=== PATIENT | male | born 1950 | race Caucasian/White ===

== ENCOUNTER 2020-12-23 17:46 | Emergency (ER) | payer MEDICARE, BC ==
[2020-12-23] MEDS ORDERED: Metoprolol Tartrate 5 MG/5 ML SDV IVPUSH ONE ×4 (18:37→23:06)
[2020-12-23] MEDS ORDERED: HYDROmorphone 1 MG/ML Syringe IVPUSH ONE ×2 (18:38→20:25)
[2020-12-23] MEDS ORDERED: Metoclopramide 10 MG/2 ML SDV IVPUSH ONE ×2 (18:38→23:30)
--- NOTE | 2020-12-23 18:42 | EDM.PDOC ---
ED HPI GENERAL MEDICAL PROBLEM - General Chief Complaint: Cardiovascular Problem Stated Complaint: ABDOMINAL PAIN Time Seen by Provider: 12/23/20 18:36 Source of Information: Reports: Patient History Limitations: Reports: No Limitations - History of Present Illness INITIAL COMMENTS - FREE TEXT/NARRATIVE: 70-year-old male presents to the ED with onset of severe periumbilical left upper quadrant abdominal pain. He states this started on his trip back from [facility] towards [facility] where he resides. He states that approximately 200 miles from [place] that he started develop abdominal pain with a strong crampy component. He did stop in [place] and had a small bowel movement without blood. It provided no relief. From [place] which is 170 miles from [place] he developed increased abdominal pain to the point that he could no longer drive. He presents to the ED pallid and nauseated with pain which she rates 8-9 out of 10 left periumbilical and upper quadrant of the abdomen. Patient also presents in atrial fibrillation with rapid ventricular response. Patient has a history of chronic atrial fibrillation but admits he has not taken his metoprolol for the last day and a half as he ran out of medication and state a bit longer kian any plan. He is thus dyspneic. Heart rate is in the 140s on the monitor. Atrial fibrillation. O2 sats 92 to 94% room air. Patient has a known large umbilical hernia or para umbilical hernia which surgeons do not feel comfortable operating on him due to high risk I on Coumadin and Plavix. Patient has surgical mesh in both lower quadrants from previous inguinal hernia repairs. He has a nonproductive cough. Afebrile. Onset: Today, Gradual Onset Date: 12/23/20 Onset Time: 14:45 Duration: Hour(s):, Constant, Getting Worse, Waxing/Waning Location: Reports: Abdomen (Strong colicky component to the pain.) Quality: Reports: Ache, Sharp (There is a very strong colicky component to his pain.), Stabbing Severity: Severe (He rates the pain as 9 out of 10.) Improves with: Reports: None, Other (Position is currently comfortable. It is worse with trying to stand fully erect. Worse with coughing or deep breathing.) Worsens with: Reports: Movement (Pain is aggravated by trying to stand erect and is unable to do so. He appreciates that pain was worse if he coughed or took a deep breath.) Context: Reports: Other (Patient is known to have a large periumbilical hernia which has not been amenable to elective hernia repair due to the patient's multiple comorbidities and the fact that he is on Coumadin and Plavix. He is morbidly obese as well. Complicated by mesh grafts both inguinal areas from previous hernia ). Denies: Activity, Exercise, Lifting, Sick Contact, Trauma Associated Symptoms: Reports: Loss of Appetite, Malaise, Nausea/Vomiting, Shortness of Breath, Weakness (Nausea without vomiting). 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 (see below) (None.) - Related Data Allergies Allergy/AdvReac Type Severity Reaction Status Date / Time No Known Allergies Allergy Verified 12/23/20 18:04 Home Meds: Home Meds Citalopram Hydrobromide [Celexa] 40 mg PO DAILY 12/23/20 [History] Cyclobenzaprine [Flexeril] 10 mg PO TID PRN 12/23/20 [History] Insulin Aspart [NovoLOG] 20 unit SQ TID 12/23/20 [History] Insulin Glargine,Hum.Rec.Anlog [Basaglar Kwikpen U-100] 80 unit SQ DAILY 12/23/20 [History] Metoprolol Tartrate 50 mg PO BID 12/23/20 [History] Warfarin Sodium 4 mg PO DAILY 12/23/20 [History] allopurinoL [Zyloprim] 200 mg PO DAILY 12/23/20 [History] atorvaSTATin [Lipitor] 10 mg PO DAILY 12/23/20 [History] metFORMIN HCl [Metformin HCl] 1,000 mg PO BID 12/23/20 [History] Past Medical History HEENT History: Reports: Impaired Vision Cardiovascular History: Reports: Afib (Chronic A. fib. He is chronic anticoagulated with Coumadin.), Arrhythmia, Hypertension, SOB on Exertion, Stents Respiratory History: Reports: Sleep Apnea Other Respiratory History: wears CPAP at night Gastrointestinal History: Reports: Bowel Obstruction Musculoskeletal History: Reports: Gout Other Musculoskeletal History: 4 broken ribs on right side Endocrine/Metabolic History: Reports: Diabetes, Type II (He estimates he has been diabetic for about 10 years. He is currently controlled with both long- acting and short acting insulin daily. He takes his Lantus in the morning. He is also on Metformin 1000 mg twice daily.), Obesity/BMI 30+ - Past Surgical History Other Cardiovascular Surgeries/Procedures: stents placed in 2013 GI Surgical History: Reports: Colonoscopy, Hernia, Abdominal (Chronic abdominal hernia.), Other (See Below) (Bilateral inguinal hernia repair with mesh graft placement.) Social & Family History - Tobacco Use Tobacco Use Status *Q: Former Tobacco User Used Tobacco, but Quit: Yes Month/Year Tobacco Last Used: 05/1991 - Caffeine Use Caffeine Use: Reports: None - Alcohol Use Alcohol Use History: Yes Days Per Week of Alcohol Use: 7 - Recreational Drug Use Recreational Drug Use: No - Living Situation & Occupation Living situation: Reports: Occupation: Unemployed ED ROS GENERAL - Review of Systems Review Of Systems: See Below Constitutional: Reports: Malaise, Fatigue, Decreased Appetite (Today.). Denies: Fever, Chills, Weight Loss HEENT: Reports: Glasses Respiratory: Reports: Shortness of Breath (Unproductive), Cough. Denies: Wheezing, Pleuritic Chest Pain, Sputum Cardiovascular: Reports: Blood Pressure Problem, Dyspnea on Exertion, Edema, Lightheadedness (Due to the amount of pain that he is in at present.), Ort hopnea. Denies: Chest Pain, Claudication (Chronic hypertension) Endocrine: Reports: Fatigue, High Glucose (Type II diabetic), Polyuria GI/Abdominal: Reports: Abdominal Pain (History of present illness), Decreased Appetite, Nausea (Associated with abdominal pain). Denies: Constipation, Difficulty Swallowing (Day only.), Hematochezia, Vomiting, Other : Reports: Frequency, Urgency Musculoskeletal: Reports: Neck Pain ( compression fracture lumbar spine with kyphoplasty. Chronic low back pain), Shoulder Pain ( chronic cervical neck pain intermittent shoulder pain), Back Pain (Previous), Joint Pain (Knees and hips.) Skin: Reports: Bruising (Costal margin inferiorly. Patient reports that he fell in his garage and landed on a object and suffered for fractured ribs recently. He was discharged from hospital December 11. He was in hospital apparently 4 days.) Neurological: Reports: Dizziness, Difficulty Walking (Chronically), Weakness. Denies: Confusion, Headache, Numbness (Occasional.), Paresthesia, Syncope, Tingling, Tremors, Trouble Speaking Psychiatric: Reports: No Symptoms Hematologic/Lymphatic: Reports: No Symptoms Immunologic: Reports: No Symptoms ED EXAM, GENERAL - Physical Exam Exam: See Below Exam Limited By: No Limitations General Appearance: Alert, Moderate Distress (Moderate to severe distress. He is very pallid in color. Speaks in 3-5 word sentences.), Other (Temperature is 36.1 degrees. Heart rate was 141-152 atrial fibrillation on the monitor. Respiratory was 18-20 with O2 sats of 94% on room air. BP 167 129 initially suspect elevation from pain response) Eye Exam: Bilateral Eye: Normal Inspection, PERRL Throat/Mouth: Normal Inspection, Normal Lips, Normal Teeth, Normal Oropharynx Head: Atraumatic, Normocephalic Neck: Normal Inspection, Supple, Non-Tender, Limited Range of Motion (Mildly reduced lateral flexion and 10 degrees loss of extension.). No: Lymphadenopathy (L), Lymphadenopathy (R) Respiratory/Chest: No Accessory Muscle Use, Respiratory Distress, Decreased Breath Sounds (Tachypnea. Breath sounds diminished to both lung bases), Rales (Coarse rales bilaterally. Lung bases). No: No Respiratory Distress, Lungs Clear, Normal Breath Sounds Cardiovascular: No Gallop, No Murmur, No Rub, Irregularly Irregular (He is in atrial fibrillation chronically his heart rate is currently in the 140s. It reveals atrial fibrillation on the monitor.). No: Normal Peripheral Pulses, No Edema Peripheral Pulses: 1+: Posterior Tibial (L), Posterior Tibial (R), Dorsalis Pedis (L), Dorsalis Pedis (R), 2+: Carotid (L), Carotid (R) GI/Abdominal: Distended (Diffuse mild tympany to percussion upper abdomen but not inferior to the umbilicus.), Abnormal Bowel Sounds (Hyperactive bowel sounds throughout all 4 quadrants.), Other (Morbidly obese. Abdominal girth limits ability to palpate solid organs. Patient has a very large abdominal wall hernia from the 1:00 to 3 o'clock position if looking at him from the toes.) Back Exam: Other (Patient reports chronic back pain. Previous lumbar 1 compression fracture with kyphoplasty) Extremities: Other (Patient has edema both ankles and feet and lower tib-fib's. Does have bilateral venous stasis dermatitis.) Neurological: Alert, Oriented, CN II-XII Intact, Normal Cognition Psychiatric: Anxious, Other (And is in exquisite amount of pain at the time of exam) Skin Exam: Warm, Dry, Ecchymosis (MOC's right costal margin right upper quadrant of the abdomen from recent fall with fractured ribs right side x4.), Pallor, Other. No: Normal Color #1 Interpretation EKG Date: 12/23/20 Time: 18:05 Rhythm: A-Fib (With rates at 75-160 beats a minute) Rate (Beats/Min): 144 [place]: Normal P-Wave: Variable QRS: Other (Q waves present in V1 and V2 consider old anteroseptal microinfarction.) ST-T: Depressed (Mild ST segment depression V3-to V6 consider ischemia versus repolarization abnormality. There is decreased voltage limb and precordial leads.) QT: Normal EKG Interpretation Comments: Abnormal ECG Course - Vital Signs Last Recorded V/S: Last Vital Signs Temp 36.1 C 12/23/20 17:53 Pulse 128 H 12/23/20 23:18 Resp 18 12/23/20 17:53 BP 124/95 H 12/23/20 23:18 Pulse Ox 94 L 12/23/20 17:53 - Orders/Labs/Meds Orders: Active Orders 24 hr Category Date Time Status Abdomen Pelvis wo Cont [CT] Stat Exams 12/23/20 18:39 Taken Chest 1V Frontal [CR] Stat Exams 12/23/20 18:43 Taken Sodium Chloride 0.9% [Normal Saline] 1,000 ml Med 12/23/20 18:45 Active IV ASDIRECTED Medication Orders Sodium Chloride (Normal Saline) 1,000 mls @ 125 mls/hr IV ASDIRECTED TERRIE Last Admin: 12/23/20 18:50 Dose: 125 mls/hr Documented by: NISA Labs: Laboratory Tests 12/23/20 12/23/20 12/23/20 Range/Units 18:10 18:50 18:50 WBC 13.20 H (4.23-9.07) K/mm3 RBC 5.14 (4.63-6.08) M/mm3 Hgb 16.0 (13.7-17.5) gm/dl Hct 49.3 (40.1-51.0) % MCV 95.9 H (79.0-92.2) fl MCH 31.1 (25.7-32.2) pg MCHC 32.5 (32.2-35.5) g/dl RDW Std Deviation 48.5 H (35.1-43.9) fL Plt Count 303 (163-337) K/mm3 MPV 9.5 (9.4-12.3) fl Neut % (Auto) 74.3 H (34.0-67.9) % Lymph % (Auto) 17.0 L (21.8-53.1) % [place] % (Auto) 6.6 (5.3-12.2) % Eos % (Auto) 1.4 (0.8-7.0) Baso % (Auto) 0.4 (0.1-1.2) % Neut # (Auto) 9.81 H (1.78-5.38) K/mm3 Lymph # (Auto) 2.24 (1.32-3.57) K/mm3 [place] # (Auto) 0.87 H (0.30-0.82) K/mm3 Eos # (Auto) 0.19 (0.04-0.54) K/mm3 Baso # (Auto) 0.05 (0.01-0.08) K/mm3 Manual Slide Review Abnormal smear PT 16.1 H (9.7-12.0) SECONDS INR 1.52 APTT 27.3 (21.7-31.4) SECONDS Sodium (136-145) mEq/L Potassium (3.5-5.1) mEq/L Chloride (98-107) mEq/L Carbon Dioxide (21-32) mEq/L Anion Gap (5-15) BUN (7-18) mg/dL Creatinine (0.7-1.3) mg/dL Est Cr Clr Drug Dosing mL/min Estimated GFR (MDRD) (>60) mL/min BUN/Creatinine Ratio (14-18) Glucose (70-99) mg/dL POC Glucose 194 H (70-99) mg/dL Lactic Acid (0.4-2.0) mmol/L Calcium (8.5-10.1) mg/dL Magnesium (1.8-2.4) mg/dL Total Bilirubin (0.2-1.0) mg/dL AST (15-37) U/L ALT (16-63) U/L Alkaline Phosphatase (46-116) U/L Troponin I (0.00-0.056) ng/mL C-Reactive Protein (<1.0) mg/dL NT-Pro-B Natriuret Pep (0-125) pg/mL Total Protein (6.4-8.2) g/dl Albumin (3.4-5.0) g/dl Globulin gm/dL Albumin/Globulin Ratio (1-2) SARS-CoV-2 RNA (SKYLA) (NEGATIVE) 12/23/20 12/23/20 12/23/20 Range/Units 18:50 18:50 18:50 WBC (4.23-9.07) K/mm3 RBC (4.63-6.08) M/mm3 Hgb (13.7-17.5) gm/dl Hct (40.1-51.0) % MCV (79.0-92.2) fl MCH (25.7-32.2) pg MCHC (32.2-35.5) g/dl RDW Std Deviation (35.1-43.9) fL Plt Count (163-337) K/mm3 MPV (9.4-12.3) fl Neut % (Auto) (34.0-67.9) % Lymph % (Auto) (21.8-53.1) % [place] % (Auto) (5.3-12.2) % Eos % (Auto) (0.8-7.0) Baso % (Auto) (0.1-1.2) % Neut # (Auto) (1.78-5.38) K/mm3 Lymph # (Auto) (1.32-3.57) K/mm3 [place] # (Auto) (0.30-0.82) K/mm3 Eos # (Auto) (0.04-0.54) K/mm3 Baso # (Auto) (0.01-0.08) K/mm3 Manual Slide Review PT (9.7-12.0) SECONDS INR APTT (21.7-31.4) SECONDS Sodium 139 (136-145) mEq/L Potassium 4.2 (3.5-5.1) mEq/L Chloride 101 (98-107) mEq/L Carbon Dioxide 26 (21-32) mEq/L Anion Gap 16.2 H (5-15) BUN 20 H (7-18) mg/dL Creatinine 1.2 (0.7-1.3) mg/dL Est Cr Clr Drug Dosing 55.08 mL/min Estimated GFR (MDRD) > 60 (>60) mL/min BUN/Creatinine Ratio 16.7 (14-18) Glucose 205 H (70-99) mg/dL POC Glucose (70-99) mg/dL Lactic Acid (0.4-2.0) mmol/L Calcium 9.0 (8.5-10.1) mg/dL Magnesium 1.6 L (1.8-2.4) mg/dL Total Bilirubin 0.6 (0.2-1.0) mg/dL AST 25 (15-37) U/L ALT 39 (16-63) U/L Alkaline Phosphatase 132 H (46-116) U/L Troponin I < 0.017 (0.00-0.056) ng/mL C-Reactive Protein <0.2 (<1.0) mg/dL NT-Pro-B Natriuret Pep 956 H (0-125) pg/mL Total Protein 8.2 (6.4-8.2) g/dl Albumin 4.0 (3.4-5.0) g/dl Globulin 4.2 gm/dL Albumin/Globulin Ratio 1.0 (1-2) SARS-CoV-2 RNA (SKYLA) Negative (NEGATIVE) 12/23/20 Range/Units 19:00 WBC (4.23-9.07) K/mm3 RBC (4.63-6.08) M/mm3 Hgb (13.7-17.5) gm/dl Hct (40.1-51.0) % MCV (79.0-92.2) fl MCH (25.7-32.2) pg MCHC (32.2-35.5) g/dl RDW Std Deviation (35.1-43.9) fL Plt Count (163-337) K/mm3 MPV (9.4-12.3) fl Neut % (Auto) (34.0-67.9) % Lymph % (Auto) (21.8-53.1) % [place] % (Auto) (5.3-12.2) % Eos % (Auto) (0.8-7.0) Baso % (Auto) (0.1-1.2) % Neut # (Auto) (1.78-5.38) K/mm3 Lymph # (Auto) (1.32-3.57) K/mm3 [place] # (Auto) (0.30-0.82) K/mm3 Eos # (Auto) (0.04-0.54) K/mm3 Baso # (Auto) (0.01-0.08) K/mm3 Manual Slide Review PT (9.7-12.0) SECONDS INR APTT (21.7-31.4) SECONDS Sodium (136-145) mEq/L Potassium (3.5-5.1) mEq/L Chloride (98-107) mEq/L Carbon Dioxide (21-32) mEq/L Anion Gap (5-15) BUN (7-18) mg/dL Creatinine (0.7-1.3) mg/dL Est Cr Clr Drug Dosing mL/min Estimated GFR (MDRD) (>60) mL/min BUN/Creatinine Ratio (14-18) Glucose (70-99) mg/dL POC Glucose (70-99) mg/dL Lactic Acid 1.6 (0.4-2.0) mmol/L Calcium (8.5-10.1) mg/dL Magnesium (1.8-2.4) mg/dL Total Bilirubin (0.2-1.0) mg/dL AST (15-37) U/L ALT (16-63) U/L Alkaline Phosphatase (46-116) U/L Troponin I (0.00-0.056) ng/mL C-Reactive Protein (<1.0) mg/dL NT-Pro-B Natriuret Pep (0-125) pg/mL Total Protein (6.4-8.2) g/dl Albumin (3.4-5.0) g/dl Globulin gm/dL Albumin/Globulin Ratio (1-2) SARS-CoV-2 RNA (SKYLA) (NEGATIVE) Meds: Medications Generic Name Dose Route Start Last Admin Trade Name Freq PRN Reason Stop Dose Admin Sodium Chloride 1,000 mls @ 125 mls/hr 12/23/20 18:45 12/23/20 18:50 Normal Saline IV 125 mls/hr ASDIRECTED TERRIE Administration Discontinued Medications Generic Name Dose Route Start Last Admin Trade Name Aidanq PRN Reason Stop Dose Admin Furosemide 40 mg 12/23/20 22:05 12/23/20 22:37 Furosemide 40 Mg/4 Ml Vial IVPUSH 12/23/20 22:06 40 mg NOW ONE Administration Hydromorphone HCl 1 mg 12/23/20 18:38 12/23/20 18:51 Hydromorphone 1 Mg/Ml Syringe IVPUSH 12/23/20 18:39 1 mg ONETIME ONE Administration Hydromorphone HCl 1 mg 12/23/20 20:25 12/23/20 20:45 Hydromorphone 1 Mg/Ml Syringe IVPUSH 12/23/20 20:26 1 mg ONETIME ONE Administration Metoclopramide HCl 10 mg 12/23/20 18:38 12/23/20 18:50 Metoclopramide 10 Mg/2 Ml Sdv IVPUSH 12/23/20 18:39 10 mg ONETIME ONE Administration Metoprolol Tartrate 5 mg 12/23/20 18:37 12/23/20 18:53 Metoprolol Tartrate 5 Mg/5 Ml Sdv IVPUSH 12/23/20 18:38 5 mg ONETIME ONE Administration Metoprolol Tartrate 5 mg 12/23/20 21:10 12/23/20 21:17 Metoprolol Tartrate 5 Mg/5 Ml Sdv IVPUSH 12/23/20 21:11 5 mg ONETIME ONE Administration Metoprolol Tartrate 5 mg 12/23/20 22:09 12/23/20 22:15 Metoprolol Tartrate 5 Mg/5 Ml Sdv IVPUSH 12/23/20 22:10 5 mg ONETIME ONE Administration Metoprolol Tartrate 5 mg 12/23/20 23:06 12/23/20 23:18 Metoprolol Tartrate 5 Mg/5 Ml Sdv IVPUSH 12/23/20 23:07 5 mg ONETIME ONE Administration - Radiology Interpretation Free Text/Narrative:: 70-year-old male presents to the ED with severe abdominal pain. Associated nausea. He reports that he is driving back to [place] from [facility] where he has been visiting for the last 10 days. Patient states that approximate 200 miles west of [facility] [place], [place] he started to develop crampy periumbilical abdominal pain. This progressively worsened. He stopped in [place] and did have a small bowel movement with no blood. He reports this did not give him any relief of the abdominal pain. Pain intensified to the point that he could no longer drive his vehicle and he came into the emergency room at our hospital. Patient presents with dyspnea and atrial fibrillation with rapid ventricular response at 146/min. He is dyspneic and hypoxic with O2 sats of 89 to 90%. He was placed on oxygen at 2 L/min by nasal cannula. Evaluation revealed a huge left-sided contents measuring 26 cm x 16 cm. There is bowel sounds in the overlying hernia. There also appears to be a hernia slightly to the right of the midline which is approximately 10 to 12 cm in length and 9 cm wide. He thus has 2 significant problems. Appears to have incarcerated periumbilical abdominal wall hernia and atrial fibrillation with rapid ventricular response. - Re-Assessments/Exams Free Text/Narrative Re-Assessment/Exam: 12/23/20 20:29 CT of the abdomen without contrast has been completed. Granulomatous calcification is appreciated the right lung base. Patchy scarring or atelectasis in the lung bases bilaterally. Heart size is normal with moderate coronary artery calcification appreciated. Mediastinal space reveals the visualized distal esophagus to be normal. Liver shows small liver with slightly lobular contour and a few areas suspicious for underlying cirrhosis. No mass lesions. No intrahepatic biliary ductal dilatation. Granulomatous calcifications in the liver appreciated. Gallbladder and bile ducts reveal no abnormalities. No calcified gallstones. No ductal dilatation. Pancreas shows mild pancreatic atrophy without acute abnormality. No pancreatic ductal dilatation. Spleen is normal with no splenomegaly. Adrenal lungs 3 mm left adrenal calcification appreciated. Probably granulomatous. Adrenal glands otherwise unremarkable. Kidneys and ureters show moderate bilateral symmetrical perinephric stranding which is nonspecific and age-indeterminate. This may relate to perirenal scarring or edema. Clinical and laboratory correlation is recommended to exclude evidence of medical renal disease. No hydronephrosis or hydroureter evident. No urinary tract stones identified. The stomach is largely contracted without gross abnormality. The small bowel is nondilated with no gross abnormality. Mild colonic diverticulosis without evidence of diverticulitis is present. The transverse colon herniates through the anterior abdominal wall in the periumbilical region in (2 places)-- just to the right and left of the midline just above the hernia repair mesh. There is no bowel dilatation proximal to the hernias to suggest associated bowel obstruction. No significant wall thickening or stranding was seen to suggest bowel strangulation. The appendix is normal in caliber and demonstrates no evidence of appendicitis. Intraperitoneal space was no free air or fluid. Vasculature reveals moderate atherosclerotic aorto iliac calcification without aneurysm. Lymph nodes are normal. Urinary bladder appears unremarkable. Reproductive tract appears unremarkable. Bones and joints reveal osteopenia. Chronic fractures of the right lateral sixth, seventh and ninth ribs evident. Chronic moderate superior endplate compression deformity of lumbar 1 vertebra with prior vertebroplasty and about 4 mm of retropulsion is evident. There is associated moderate central canal stenosis at this level. Moderate multilevel disc degenerative changes in the lumbar spine. Soft tissues reveal evidence of prior periumbilical hernia repair. In addition to the abdominal wall hernias containing bowel in the supraumbilical region, there is a small fatty midline supraumbilical hernia present with no associated bowel herniation or signs of strangulation. There is also another small fatty hernia at the right inferior lateral margin of the mesh. Pain is much improved after receiving IV Dilaudid 1mg. He rates his pain down to a 3 compared to a 9 when he came into the ED. His color is also much better. He still has a very large periumbilical hernia from the 1:00 to 3 o'clock position looking at his feet upwards. This is greaterin length than the size of the palm of my hand and wider. 12/23/20 20:36 White count is elevated at 13.20. Neutrophil count is 74.3% on the auto differential. Hemoglobin was 16.0 with hematocrit of 49.3 suggesting some degree of hemoconcentration. MCV mildly elevated at 95.9. Platelet count 303,000. The smear reveals moderate toxic granulation pattern with less than 5% banded neutrophils seen. Platelets are adequate and normal. PT is 16.1 with an INR which is subtherapeutic at 1.52. PTT is 27.3. Sodium 139 with a potassium of 4.2. Chloride 101 with a bicarb of 26. Anion gap is 16.2. BUN is 20 creatinine is 1.2. GFR is greater than 60. Glucose was 205 bedside glucose was 194. Lactic acid is 1.6. Calcium is 9.0 with a magnesium slightly low at 1.6. Liver function normal other than slightly elevated alkaline phosphatase at 132. Troponin I is less than 0.017. C-reactive protein less than 0.2. BNP is 956. If further pain medication and manipulation to try and reduce his hernia fails he is going to need urgent surgery due to a large amount of the transverse colon in the hernia. It may well be too incarcerated to reduce although there is not that much stranding around the the herniated contents and fat in the abdominal wall at this time. On discussion he would prefer to be transferred to [facility] in [place] if we are able and need to send him to a hospital in [place] this is where he would prefer to go. He was appraised of the high surgical risk and he has been turned down by 2 other general surgeons at [facility] in the past. Of course this was an elective hernia repair. He does not believe that he is ever had incarceration of the hernia although by the size of the defect in his abdominal wall there is likely bowel and omentum slipping in and out of these hernia defects for many years. This is the first time it ever hurt this bad. 12/23/20 21:47 I spent a half an hour in the patient's room and I believe I was able to reduce the right sided umbilical hernia. I had no success however with the left-sided umbilical hernia. Patient will have to be transferred to [place] where he is from for likely surgical management. CT of the abdomen and pelvis sent by PACS with his chest x-ray to [place]. His heart rate remains around 1 14-1 20. He will therefore receive a third dose of metoprolol 5 mg p.o. I have withheld oral medication due to suspected need for surgery. 12/23/20 22:00 My PA is currently on the phone with [facility] call and the refore I have delayed my call to her. Patient will have a repeat glucose check. He will be given Lasix 40 mg IV as well. 12/23/20 23:07 rate is gradually got back up in atrial fibrillation between 120 and 140/min. We will repeat metoprolol 5 mg IV. Contemplating using a esmolol drip but pharmacy would have to come in and mix it up which would take the better part of an hour. At present I have no accepting physician in [facility] to transfer this patient at this time. Awaiting callback through the 1 call service at [facility]. 12/23/20 23:34 patient has been up to void x2 at the bedside. At present his abdominal pain is rated as a 1 out of 10. Atrial fibrillation rate did increase when he stood at the bedside up to 128/min. Primary rate is staying around 100 to 115/min supine. I did get a phone call back from [facility] at [facility] in [facility]. Thus far they report they have not been able to receive the CT scans of the abdomen and pelvis and or his chest x-ray per [facility] services. I have resent the images. I will have a CD-ROM prepared of his chest and CT of the abdomen and pelvis so that is available upon his arrival. I did speak with on-call hospitalist and she has accepted care of this patient. She has asked that the surgeon on-call be notified once the images become available to him. In the meantime we will arrange for ambulance transport to [facility] at this time. Appropriate paperwork has been filled out. 12/23/20 23:52 medics are here now to provide transport to [place]. His blood sugar done a short time ago was 214. Pain remains a 1-2 out of 10. Departure - Departure Time of Disposition: 23:41 Disposition: DC/Tfer to Acute Hospital 02 Reason for Transfer *Q: Other Condition: Fair Clinical Impression: Incarcerated ventral hernia, Chronic atrial fibrillation with RVR, Mild congestive heart failure, Chronic anticoagulation, Morbid obesity with BMI of 45.0-49.9, adult Cirrhosis of liver Qualifiers: Hepatic cirrhosis type: alcoholic cirrhosis Ascites presence: without ascites Qualified Code(s): K70.30 - Alcoholic cirrhosis of liver without ascites Type 2 diabetes mellitus Qualifiers: Diabetes mellitus halfway insulin use: with halfway use Diabetes mellitus complication status: without complication Qualified Code(s): E11.9 - Type 2 diabetes mellitus without complications; Z79.4 - salvage determiner (current) use of i nsulin Referrals: Sudhakar Singleton MD [Primary Care Provider] - Forms: ED Department Discharge Additional Instructions: Patient was sent by ambulance to [facility] in [place] where he prefers to be admitted. We do not have any beds in our hospital available at this time. Patient is too high surgical risk for our institution. He has multiple comorbidities including morbid obesity, type 2 diabetes, uncontrolled atrial fibrillation at this time and chronic anticoagulation with both Coumadin and Plavix. Sepsis Event Note (ED) - Evaluation Sepsis Screening Result: Possible Sepsis Risk - Focused Exam Vital Signs: Vital Signs Temp Pulse Pulse Resp BP BP Pulse Ox 12/23/20 23:18 128 H 124/95 H 12/23/20 22:15 131 H 147/100 H 12/23/20 21:17 138 H 143/80 H 12/23/20 18:53 150 H 184/95 H 12/23/20 17:53 36.1 C 141 H 18 167/129 H 94 L - My Orders Last 24 Hours: My Active Orders 12/23/20 18:39 Abdomen Pelvis wo Cont [CT] Stat 12/23/20 18:43 Chest 1V Frontal [CR] Stat 12/23/20 18:45 Sodium Chloride 0.9% [Normal Saline] 1,000 ml IV ASDIRECTED - Assessment/Plan Last 24 Hours: My Active Orders 12/23/20 18:39 Abdomen Pelvis wo Cont [CT] Stat 12/23/20 18:43 Chest 1V Frontal [CR] Stat 12/23/20 18:45 Sodium Chloride 0.9% [Normal Saline] 1,000 ml IV ASDIRECTED
[2020-12-23] MEDS ORDERED: Sodium Chloride 0.9% 1,000 ML IV SCH (18:45)
[2020-12-23] MEDS ORDERED: Furosemide 40 MG/4 ML VIAL IVPUSH ONE (22:05)
[2020-12-23] MEDS ORDERED: Metoprolol Tartrate 5 MG/5 ML SDV ONE ×2 (23:46→23:48)
--- NOTE | 2020-12-24 08:50 | CT ---
CT abdomen and pelvis Technique: Multiple axial sections were obtained from above the dome of the diaphragm inferiorly through the pubic symphysis. Intravenous and oral contrast were not utilized. Reconstructed coronal and sagittal images were obtained. Comparison: No prior abdominal imaging is available. Findings: Visualized lung bases show slight dependent atelectasis. Calcified granuloma is noted within the right lung base. Several old right lower rib fractures are partially seen. Liver shows no focal abnormality. Spleen size is normal. Pancreas shows no discrete abnormality. Adrenal glands show no nodule. Small calcification is seen within the left adrenal gland. Kidneys show no abnormal calcifications or hydronephrosis. No ureteral dilatation or ureteral stone is seen. Abdominal aorta shows no aneurysm. Atherosclerotic calcification is seen within the aorta and iliac vessels. No mesenteric abnormalities are seen. No retroperitoneal adenopathy is noted. Appendix is not definitely visualized. No pelvic mass or adenopathy is seen. Previous abdominal wall surgery is noted. Four anterior abdominal wall hernias are noted, two of which contain fat and two of which contain a loop of colon. No findings of vascular obstruction is seen within these hernias. Diffuse degenerative change is seen throughout the spine. Compression deformity with vertebroplasty is noted within L1. Degenerative changes are also noted within both sacroiliac joints and within both hips. Impression: 1. Four abdominal wall hernias as described above. Two hernias contain a loop of colon which show no evidence of vascular complication. 2. Other incidental findings as noted above. Diagnostic code #3 I mildly disagree with preliminary report from [facility], finalized on 12/23/20, 9:22 PM CDT, code 2
--- NOTE | 2020-12-24 09:12 | CR ---
Chest: Frontal view of the chest was obtained. Comparison: No prior chest imaging is available. Cardiac silhouette and mediastinum are within normal limits. Slight linear density within the left lung base most likely due to scarring. Lungs otherwise are clear. Bony structures show nothing acute. Impression: 1. Nothing acute is seen on portable chest x-ray. Diagnostic code #2
== END 2020-12-24 00:04 ==
LOC: JD.ED 17:46
DX: K43.6 Other and unspecified ventral hernia with obstruction, without gangrene (principal); I11.0 Hypertensive heart disease with heart failure; I50.9 Heart failure, unspecified; I48.20 Chronic atrial fibrillation, unspecified; E66.9 Obesity, unspecified; K70.30 Alcoholic cirrhosis of liver without ascites; E11.9 Type 2 diabetes mellitus without complications; Z79.4 Long term (current) use of insulin; Z79.899 Other long term (current) drug therapy; Z72.0 Tobacco use; Z95.5 Presence of coronary angioplasty implant and graft; Z20.822 Contact with and (suspected) exposure to COVID-19; Z79.01 Long term (current) use of anticoagulants; Z68.42 Body mass index [BMI] 45.0-49.9, adult
CPT/HCPCS: 36415; 71045; 74176; 80053; 82947; 83605; 83735; 83880; 84484; 85025; 85610; 85730; 86140; 96374; 96375; 96376; 99285; J1170; J1940; J2765; J3490; J7030; U0002; 93010; 99284